=== PATIENT | male | born 1980 | race Caucasian/White ===

== ENCOUNTER 2022-03-07 16:08 | Emergency (ER) | payer SELFPAY ==
[~2022-03-07] VITALS: Ht 152.4 cm; Wt 74.8 kg
[2022-03-07 16:31] VITALS: BP 133/79
[2022-03-07] MEDS ORDERED: ELIMC TP (17:36)
[2022-03-07] MEDS ORDERED: LORA10SG1 PO (17:36)
[2022-03-07] MEDS ORDERED: PRED20TA5 PO (17:36)
[2022-03-07] MEDS ORDERED: DIPH25TA53 PO (17:36)
--- NOTE | 2022-03-07 17:48 | NUR ---
Patient discharged with v/s stable. Written and verbal after care instructions given and explained. Patient alert, oriented and verbalized understanding of instructions. Ambulatory with steady gait. All questions addressed prior to discharge. ID band removed. Patient advised to follow up with PMD. Rx of BENADRYL,PEPCID,ELEMITE given. Patient educated on indication of medication including possible reaction and side effects. Opportunity to ask questions provided and answered.
== END 2022-03-07 17:48 | disposition home or self-care (01) ==
LOC: MED 16:08
DX: R21 Rash and other nonspecific skin eruption (principal); R03.0 Elevated blood-pressure reading, without diagnosis of hypertension; Z79.899 Other long term (current) drug therapy
CPT/HCPCS: 99283